=== PATIENT | male | born 1995 | race Caucasian/White ===

== ENCOUNTER → 2018-01-25 | Outpatient (CLI) | payer BC ==
--- NOTE | 2018-01-25 16:04 | DIAGNOSTIC IMAGING REPORT ---
SCOLIOSIS 2 VIEW (AP LAT) HISTORY: 22 years-old Male SPINAL ASYMMETRY COMPARISON: None available TECHNIQUE: AP and lateral radiographs of the thoracolumbar spine were obtained for scoliosis series study. FINDINGS: There are 12 rib bearing thoracic type vertebral segments with 5 nonrib-bearing lumbar type vertebral segments. There is 10 degrees dextroscoliosis of the lower thoracic spine measured from T8-T12. No significant scoliosis of the lumbar spine identified. No segmentation anomalies or focal lesions identified. The left clavicle is 8 mm superior to the right. The right iliac crest is 6 mm superior to the left. Gravitational line drawn through the center of the L3 vertebral body traverses 6 mm posterior to the sacral promontory. IMPRESSION: Mild dextroscoliosis of the lower thoracic spine. The above report was generated using voice recognition software. It may contain grammatical, syntax or spelling errors. Electronically signed by: Frandy Esparza M.D. 01/25/2018 4:03 PM Dictated Date/Time: 01/25/2018 3:57 PM
== END | disposition home or self-care (01) ==
LOC: C.RADBC 14:20
PROVIDERS: ATTEND Nurse Practitioner Adult Health
DX: M43.8X9 Other specified deforming dorsopathies, site unspecified (principal)